=== PATIENT | female | born 1960 | race Caucasian/White ===

== ENCOUNTER 2016-07-25 20:10 | Emergency (ER) | payer SELFPAY | END 2016-07-25 21:45 | disposition left against medical advice (07) | LOC: E/R 20:10 | DX: Z53.21 Procedure and treatment not carried out due to patient leaving prior to being seen by health care provider (principal) ==

== ENCOUNTER 2016-07-27 17:04 | Observation (INO) | payer BC ==
[~2016-07-27] VITALS: Ht 157.5 cm; Wt 91.4 kg
[2016-07-27] MEDS ORDERED: morphine 4 MG/ML VIAL IV STA (22:50)
[2016-07-27] MEDS ORDERED: SOD CHLORIDE 0.9% 1,000 ML IV STA (22:50)
[2016-07-27] MEDS ORDERED: ONDANSETRON 4 MG INJ IV STA (22:50)
[2016-07-27 23:47] LABS: BASOPHILS % 0.1 % (0.0-2.0); CONDITION 1; EOSINOPHILS # 0.1 10^3/ul (0.0-0.5); EOSINOPHILS % 2.1 % (0.0-7.0); HEMATOCRIT 39.5 % (37.0-47.0); HEMOGLOBIN 13.5 g/dl (12.0-16.0); LH ANALYZER COMMENTS 1; LYMPHOCYTES # 1.3 10^3/ul (0.8-2.9); LYMPHOCYTES % 30.2 % (15.0-51.0); MEAN CORPUSCULAR HEMOGLOBIN 32.1 pg (29.0-33.0); MEAN CORPUSCULAR HGB CONC 34.1 g/dl (32.0-37.0); MEAN CORPUSCULAR VOLUME 94.2 fl (82.0-101.0); MEAN PLATELET VOLUME 8.4 fl (7.4-10.4); MONOCYTE # 0.5 10^3/ul (0.3-0.9); MONOCYTES % 11.5 % (0.0-11.0); NEUTROPHIL # 2.3 10^3/ul (1.6-7.5); NEUTROPHILS % 56.1 % (39.0-77.0); PLATELET COUNT 68 10^3/UL (140-440); RED BLOOD COUNT 4.19 10^6/ul (4.20-5.40); RED CELL DISTRIBUTION WIDTH 16.3 % (11.5-14.5); UNCORRECTED WBC 4.2 10^3/ul (4.8-10.8); WHITE BLOOD COUNT 4.2 10^3/ul (4.8-10.8)
[2016-07-27 23:53] LABS: ALBUMIN 3.1 g/dl (3.3-4.9)
[2016-07-27 23:54] LABS: POTASSIUM 3.4 mmol/L (3.5-5.1)
[2016-07-27 23:56] LABS: ALBUMIN/GLOBULIN RATIO 0.65; BILIRUBIN,INDIRECT 2.6 mg/dl (0-1.1); BILIRUBIN,TOTAL 2.6 mg/dl (0.2-1.3); CREATININE 0.64 mg/dl (0.44-1.00); TOTAL PROTEIN 7.8 g/dl (6.1-8.1)
[2016-07-27 23:57] LABS: CALCIUM 8.3 mg/dl (8.4-10.2)
[2016-07-28 00:17] LABS: ADD UMIC YES; URINE BILIRUBIN (Dip) 1+ (NEGATIVE); URINE BLOOD (Dip) 3+ (NEGATIVE); URINE COLOR RED (YELLOW); URINE GLUCOSE (Dip) NEGATIVE (NEGATIVE); URINE KETONES (Dip) NEGATIVE (NEGATIVE); URINE LEUKOCYTE ESTERASE (Dip) 3+ (NEGATIVE); URINE NITRITE (Dip) POSITIVE (NEGATIVE); URINE TOTAL PROTEIN (Dip) NEGATIVE (NEGATIVE); URINE UROBILINOGEN (Dip) >8.0 E.U./dL (0.1-1.0)
--- NOTE | 2016-07-28 00:30 | RADRPT ---
PROCEDURE: CT abdomen and pelvis without contrast. CLINICAL INDICATION: Abdominal pain TECHNIQUE: CT scan of the abdomen and pelvis without contrast was performed. Sagittal and coronal reformatted images were obtained from the axial source images. CTDI = 20.27 mGy; DLP = 1144.09 mGy- cm COMPARISON: None. FINDINGS: Visualized lower thorax: Minimal bibasilar subsegmental atelectasis is present. The visualized hea rt appears borderline enlarged. There is no evidence for pleural effusion. Liver, gallbladder, pancreas and spleen: Nodular contour to the liver is most consistent with cirrh osis until proven otherwise, the liver size is normal. There is no evidence for a liver mass or jose m tammie dilatation on this unenhanced exam. Findings are compatible with prior cholecystectomy. No com mon bile duct abnormality is demonstrated. The pancreas is unremarkable. Splenomegaly of approxima tely 15 cm is present consistent with portal hypertension. Adrenal glands and genitourinary system: The adrenal glands are normal bilaterally. The kidneys are normal and size, contour and attenuation with no evidence for masses, calculi or hydronephrosis. T he ureters are unremarkable. No urinary bladder abnormality is demonstrated. The uterus is not vis ualized, presumably surgically removed. Gastrointestinal system: A small sliding hiatal hernia is present, the remainder of the stomach is contracted and unremarkable. The small bowel is normal in caliber with no ileus, obstruction or wal l thickening. The appendix is not well visualized but there is no inflammatory stranding to suggest appendicitis. Diverticular disease of the distal descending and sigmoid colon is present. Mild per icolonic fat inflammation adjacent to the descending and sigmoid colon is most concerning for acute diverticulitis. There is no evidence of extraluminal gas to suggest perforation or abscess. Peritoneum, retroperitoneum, lymph nodes and vessels: The abdominal aorta is normal in caliber. The re is mild aortic and iliac atherosclerotic calcification. The inferior vena cava is unremarkable. In the small bowel mesentery in the region of the right lower quadrant there is an ovoid soft tissue mass isointense to adjacent musculature the abnormality estimated at 7 x 5.2 x 5.8 cm and unable to exclude mesenteric adenopathy. There is shoddy retroperitoneal lymph node prominence in the short axis of approximately 8 mm. Sub centimeter short-axis iliac chain and inguinal lymph nodes are also present. Note is made of prominent perirectal vessels likely hemorrhoids with some anterior perito mary jane varices and varices in the splenic hilum, perigastric and paraesophageal regions. There is no a scites. No pneumoperitoneum is present Osseous structures and musculoskeletal findings: There is no fracture, lytic or blastic lesion. Deg enerative spondylosis of the visualized thoracic spine is moderate. Vacuum disk phenomenon with deg enerative disk disease at L4-5 and L5-S1 is noted. No muscular abnormality or soft tissue pathology is present. RPTAT:HJJR IMPRESSION: 1. Distal colonic diverticulosis with mild pericolonic inflammatory stranding raising concern for di verticulitis without evidence of perforation or abscess. Correlation with left lower quadrant tende rness is recommended. 2. Concern for a soft tissue mass in the right lower quadrant probably mesenteric adenopathy. Carc inoid tumor is a differential diagnostic possibility. Consider follow-up evaluation with intravenou s and oral contrast media. 3. Cirrhosis of the liver with portal hypertension, splenomegaly and multiple abdominal, including perigastric and paraesophageal varices. 4. No evidence of ascites. 5. Previous hysterectomy and cholecystectomy. 6. Aortic atherosclerosis is present. Physician Daisy Date Time Electronically viewed and signed by Physician Daisy on 07/28/2016 00:29 /
[2016-07-28 00:52] LABS: BACTERIA,URINE MANY; ICTOTEST POSITIVE (NEGATIVE); SQUAMOUS EPITHELIAL CELL,UR FEW
[2016-07-28] MEDS ORDERED: metroNIDAZOLE 500 MG/NS (PMX) 100 ML IVPB ONE ×2 (01:00→12:00)
[2016-07-28] MEDS ORDERED: PIPER-TAZO 3.375 GM IV (PMX) 100 ML IVPB ONE ×2 (01:00→10:00)
--- NOTE | 2016-07-28 02:44 | ERA ---
ER Documentation Chief Complaint Date/Time DATE: 07/28/16 TIME: 02:43 Chief Complaint RLQ ABDOMINAL PAIN X 3 DAYS WITH NAUSEA AND DIARRHEA HPI This is a 55 year female has bilateral quadrant pain for 3 days with nausea and diarrhea. She's had alternating fevers and chills. Pain is mild to moderate intensity. No blood in his stool. No other current complaints. ROS All systems reviewed and are negative except as per history of present illness. Allergies Allergies: Coded Allergies: No Known Allergy (Unverified , 07/28/16) PMhx/Soc Anesthesia Reaction: No Hx Neurological Disorder: No Hx Respiratory Disorders: No Hx Cardiac Disorders: Yes (HTN) Hx Psychiatric Problems: No Hx Miscellaneous Medical Probl: Yes (thyroid problem, DM, lupus, RA) Hx Alcohol Use: No Hx Substance Use: No Hx Tobacco Use: No Smoking Status: Never smoker Physical Exam Vitals Vital Signs Date Time Temp Pulse Resp B/P Pulse Ox O2 Delivery O2 Flow Rate FiO2 07/28/16 00:31 83 16 133/87 97 Room Air 07/27/16 17:09 98.7 99 18 132/65 99 Physical Exam Const: [] Head: Atraumatic Eyes: Normal Conjunctiva ENT: Normal External Ears, Nose and Mouth. Neck: Full range of motion..~ No meningismus. Resp: Clear to auscultation bilaterally Cardio: Regular rate and rhythm, no murmurs Abd: Soft, non tender, non distended. Normal bowel sounds Skin: No petechiae or rashes Back: No midline or flank tenderness Ext: No cyanosis, or edema Neur: Awake and alert Psych: Normal Mood and Affect Result Diagram: 07/27/16 2300 07/27/16 2300 Results 24 hrs Laboratory Tests Test 07/27/16 23:00 Alanine Aminotransferase (ALT/SGPT) 36IU/L Albumin 3.1g/dl Albumin/Globulin Ratio 0.65 Alkaline Phosphatase 185IU/L Anion Gap 14 Aspartate Amino Transf (AST/SGOT) 60IU/L Basophils # 0.010^3/ul Basophils % 0.1% Blood Morphology Comment Blood Urea Nitrogen 7mg/dl Calcium Level 8.3mg/dl Carbon Dioxide Level 25mmol/L Chloride Level 106mmol/L Creatinine 0.64mg/dl Direct Bilirubin 0.00mg/dl Eosinophils # 0.110^3/ul Eosinophils % 2.1% Globulin 4.70g/dl Glucose Level 176mg/dl Hematocrit 39.5% Hemoglobin 13.5g/dl Indirect Bilirubin 2.6mg/dl Lipase 117U/L Lymphocytes # 1.310^3/ul Lymphocytes % 30.2% Mean Corpuscular Hemoglobin 32.1pg Mean Corpuscular Hemoglobin Concent 34.1g/dl Mean Corpuscular Volume 94.2fl Mean Platelet Volume 8.4fl Monocytes # 0.510^3/ul Monocytes % 11.5% Neutrophils # 2.310^3/ul Neutrophils % 56.1% Nucleated Red Blood Cells # 0.010^3/ul Nucleated Red Blood Cells % 0.0/100WBC Platelet Count 6810^3/UL Potassium Level 3.4mmol/L Red Blood Count 4.1910^6/ul Red Cell Distribution Width 16.3% Sodium Level 142mmol/L Total Bilirubin 2.6mg/dl Total Protein 7.8g/dl Urine Bacteria MANY Urine Bilirubin 1+ Urine Clarity SLIGHTLY CLOUDY Urine Color RED Urine Glucose NEGATIVE% Urine Hemoglobin 3+ Urine Ictotest POSITIVE Urine Ketones NEGATIVE Urine Leukocyte Esterase 3+ Urine Microscopic RBC 10-25/HPF Urine Microscopic WBC >200/HPF Urine Nitrite POSITIVE Urine Specific [place] 1.015 Urine Squamous Epithelial Cells FEW Urine Total Protein NEGATIVE Urine Urobilinogen >8.0 E.U./dL Urine pH 6.5 White Blood Count 4.210^3/ul Current Medications Medications (Trade) Dose Ordered Sig/Rosalio Route PRN Reason Start Time Stop Time Status Last Admin Dose Admin Sodium Chloride (NS) 1,000 ml @ 1,000 mls/hr Q1H STAT IV 07/27/16 22:50 07/27/16 23:49 DC 07/27/16 23:04 Morphine Sulfate (morphine) 4 mg ONCE STAT IV 07/27/16 22:50 07/27/16 22:52 DC 07/27/16 23:04 Ondansetron HCl 4 mg 4 mg ONCE STAT IV 07/27/16 22:50 07/27/16 22:52 DC 07/27/16 23:04 Piperacillin Sod/ Tazobactam Sod 100 ml @ 200 mls/hr ONCE ONCE IVPB 07/28/16 01:00 07/28/16 01:29 DC 07/28/16 01:20 Metronidazole (Flagyl 500 Mg (Pmx)) 100 ml @ 100 mls/hr ONCE ONCE IVPB 07/28/16 01:00 07/28/16 01:59 DC 07/28/16 02:40 Procedures/MDM Medical decision-making: This very pleasant female as well as be acute diverticulitis. Given her continued pain despite pain management therapy. At this point patient will be admitted. Dr. Concepcion has currently accepted the patient to service Departure Diagnosis: Primary Impression: Abdominal pain Qualified Code: R10.30 - Lower abdominal pain Additional Impression: Diverticulitis Qualified Code: K57.92 - Diverticulitis of intestine without perforation or abscess without bleeding, unspecified part of intestinal tract Condition: Serious JAMAL CHAKRABORTY Jul 28, 2016 02:44
[2016-07-28] MEDS ORDERED: ACETAMINOPHEN 325 MG TAB PO PRN (03:00)
[2016-07-28] MEDS ORDERED: NACL 0.9% 3 ML SYG IV SCH (03:00)
[2016-07-28] MEDS ORDERED: HYDROCODONE/APAP (5/325) TAB PO PRN ×2 (03:00)
[2016-07-28] MEDS ORDERED: ONDANSETRON 4 MG INJ IV PRN (03:00)
[2016-07-28] MEDS ORDERED: ZOLPIDEM 5 MG TAB PO PRN (03:00)
[2016-07-28 04:45] VITALS: BP 124/66; PULSE 81; RESP 16
[2016-07-28] MEDS: D5W-0.45 NACL + KCL 20 MEQ 1,000 ML IV SCH ×3 (04:54→20:16)
[2016-07-28] MEDS: FAMOTIDINE 20 MG TAB PO SCH ×3 (04:56→20:16)
[2016-07-28 05:08] VITALS: Ht 157.5 cm; Wt 91.4 kg
[2016-07-28 09:01] VITALS: BP 118/62; RESP 18
[2016-07-28] MEDS: ENOXAPARIN 40 MG/0.4 ML SYG SC SCH (09:10)
[2016-07-28] MEDS: INSULIN ASPART [NOVOLOG] 3 ML PEN SC SCH ×3 (11:40→20:33)
[2016-07-28 11:51] LABS: BASOPHILS % 0.6 % (0.0-2.0); EOSINOPHILS # 0.1 10^3/ul (0.0-0.5); EOSINOPHILS % 2.2 % (0.0-7.0); HEMOGLOBIN 12.9 g/dl (12.0-16.0); LYMPHOCYTES # 1.1 10^3/ul (0.8-2.9); LYMPHOCYTES % 29.1 % (15.0-51.0); MEAN CORPUSCULAR HEMOGLOBIN 32.1 pg (29.0-33.0); MEAN CORPUSCULAR HGB CONC 33.9 g/dl (32.0-37.0); MEAN CORPUSCULAR VOLUME 94.8 fl (82.0-101.0); MEAN PLATELET VOLUME 7.7 fl (7.4-10.4); MONOCYTE # 0.5 10^3/ul (0.3-0.9); MONOCYTES % 13.1 % (0.0-11.0); NEUTROPHIL # 2.1 10^3/ul (1.6-7.5); PLATELET COUNT 67 10^3/UL (140-440); RED CELL DISTRIBUTION WIDTH 16.3 % (11.5-14.5); UNCORRECTED WBC 3.8 10^3/ul (4.8-10.8); WHITE BLOOD COUNT 3.8 10^3/ul (4.8-10.8)
[2016-07-28 11:57] LABS: ALBUMIN 2.5 g/dl (3.3-4.9)
[2016-07-28 11:58] LABS: POTASSIUM 3.6 mmol/L (3.5-5.1)
[2016-07-28 11:59] LABS: CREATININE 0.65 mg/dl (0.44-1.00)
[2016-07-28 12:00] LABS: ALBUMIN/GLOBULIN RATIO 0.62; BILIRUBIN,INDIRECT 3.5 mg/dl (0-1.1); BILIRUBIN,TOTAL 3.5 mg/dl (0.2-1.3); CALCIUM 7.4 mg/dl (8.4-10.2); MAGNESIUM 1.7 mg/dl (1.7-2.5); TOTAL PROTEIN 6.5 g/dl (6.1-8.1)
[2016-07-28] MEDS ORDERED: GLUCOSE GEL 15 GRAM TUBE PO PRN ×2 (12:00)
[2016-07-28] MEDS ORDERED: GLUCOSE GEL 15 GRAM TUBE BUCCAL PRN (12:00)
[2016-07-28] MEDS ORDERED: DEXTROSE 50% 50 ML SYRINGE IV PRN ×2 (12:00)
[2016-07-28] MEDS ORDERED: GLUCAGON 1 MG INJ IM PRN (12:00)
[2016-07-28 12:04] LABS: CONDITION 1; LH ANALYZER COMMENTS 1
[2016-07-28] MEDS ORDERED: GABA300C16 PO (12:44)
[2016-07-28] MEDS ORDERED: FLUO20CA22 PO (12:44)
[2016-07-28] MEDS ORDERED: SYN112 PO (12:44)
[2016-07-28] MEDS ORDERED: IOHEXOL 300MG/ML 30 ML BTL ONE (12:51)
[2016-07-28] MEDS: LEVOFLOXACIN 500MG/D5W (PMX) 100 ML IVPB SCH (13:01)
[2016-07-28] MEDS: metroNIDAZOLE 500 MG/NS (PMX) 100 ML IVPB SCH ×2 (13:01→20:17)
[2016-07-28] MEDS: FLUOXETINE 20 MG CAP PO SCH (13:04)
[2016-07-28] MEDS: GABAPENTIN 300 MG CAP PO SCH ×2 (13:04→20:16)
--- NOTE | 2016-07-28 13:16 | HP ---
DATE OF ADMISSION: 07/28/2016 CHIEF COMPLAINT ON ADMISSION: Abdominal pain and nausea. PRIMARY CARE PHYSICIAN: Dr. Beasley PRIMARY BEDSPREAD INSPECTOR: Dr. Alanis HISTORY OF PRESENT ILLNESS: This is a 55-year-old female with history of hypothyroidism, systemic l upus erythematosus, diabetes mellitus, anxiety disorder, fatty liver, who presented to the emergency department with complaint of right lower quadrant suprapubic tenderness mainly. She reports episod es of nausea. This has been going on for 3 days now. She has been tolerating p.o. She denies any vomiting. She reports chills and low grade temperature. She says it is less than 100. On her labo ratory data, the patient was found to have thrombocytopenia with platelets of 65 and also leukopenia with a white count of 4.2. She does have hyperbilirubinemia with a bilirubin of 2.6. On the CAT s can of the abdomen and pelvis, she was found to have possible mild diverticulitis in the distal colo n, soft tissue mass right lower quadrant that could be adenopathy versus concern for carcinoid tumor as a differential diagnosis, and also cirrhosis of the liver with portal hypertension, splenomegaly , perigastric paraesophageal varices that can be seen. No ascites. The patient herself denies any previous history of cirrhosis, but does report fatty liver. She has been admitted to a medical/[facility] bed for diverticulitis, but also urinary tract infection based on her urinalysis and urine cult ure of gram-negative rods. ALLERGIES: NO KNOWN ALLERGIES. PAST MEDICAL HISTORY: 1. Systemic lupus erythematosus. 2. Hypothyroidism. 3. Diabetes mellitus. 4. Liver cirrhosis likely secondary to fatty liver. 5. Anxiety disorder. 6. Obesity. PAST SURGICAL HISTORY: 1. Status post section. 2. Status post cholecystectomy. OUTPATIENT MEDICATIONS: The patient does not have her list currently and could not give us the name of the medications. REVIEW OF SYSTEMS: As per HPI. The patient denies any diarrhea at this time. No cardiopulmonary c omplaints. No neurological complaints. SOCIAL HISTORY: The patient lives with her son. She also has a who is not currently living with them. She denies any alcohol or tobacco use. PHYSICAL EXAMINATION: VITAL SIGNS: Temperature 98.2, heart rate of 90, sinus rhythm, respiratory rate 18, blood pressure 118/62, the patient is saturating 95% to 97% on room air. GENERAL: She is alert and oriented x4. She is in no acute distress currently. She reports that th e pain is minimal at this point which is much improved. HEENT: Pupils are equally round and reactive to light. Extraocular muscles are intact. Anicteric sclerae. NECK: No JVD, no thyromegaly noted. HEART: Regular rate and rhythm. No murmur, rubs, or gallops. LUNGS: Clear to auscultation bilaterally. ABDOMEN: Soft, nondistended. She has very mild discomfort with pain to deep palpation in the right lower quadrant to mid lower abdomen area. EXTREMITIES: No edema, clubbing, or cyanosis. NEUROLOGIC: Grossly intact. LABORATORY DATA: White blood cell count on admission 4.2, hemoglobin 13.5, hematocrit 39.5, platele t count of 68. Chemistry with a sodium of 142, potassium 3.4, chloride 106, bicarbonate 25, BUN 7, creatinine 0.67, glucose 176, calcium 8.3, total bilirubin 2.6, AST 60, ALT 36, alkaline phosphatase 185, total protein 7.8, albumin 3.1, lipase 170. Urinalysis is positive for nitrites, positive for leukocyte esterase, many bacteria were seen, all consistent with UTI. MICROBIOLOGY: Urine culture positive with gram negative rods greater than 100,000 CFU. RADIOLOGICAL IMAGING: CAT scan of the abdomen and pelvis without contrast showing distal colonic di verticulosis with mild pericolic inflammatory stranding, raising concern for diverticulitis without evidence of perforation or abscess, correlation with left lower quadrant tenderness is recommended. Of note, the patient is not having left lower quadrant tenderness. Concern for a soft tissue mass in the right lower quadrant, probably mesenteric and adenopathic carcinoid tumor is the differential diagnosis, possibly consider followup evaluation with IV and oral contrast media which will be done as the patient's primary pain is right lower quadrant actually. Also is noted cirrhosis of the tramaine er with portal hypertension, splenomegaly and multiple abdominal including perigastric and periesoph ageal varices. No evidence of ascites, previous hysterectomy and cholecystectomy, aortic atheroscle rosis. ASSESSMENT AND PLAN: 1. This is a 55-year-old female with lower abdominal pain, primarily right lower quadrant. Given t he findings on the CAT scan, noncontrasted CT with oral and p.o. contrast will be done today in orde r to reevaluate that right lower quadrant possible mass. She is going to be placed on Levaquin and Flagyl for empiric treatment for diverticulitis and also the Levaquin should cover the urinary tract infection until we get final cultures from the urine. The patient is currently stable. She will b e started on a clear liquid diet after the CAT scan is done today. She is currently on IV fluids. 2. Urinary tract infection with gram negative rods. Continue Levaquin for now. Will adjust antibi otics as needed. 3. Cirrhosis of the liver with signs of portal hypertension. At this point, the patient has been i nformed. She will have to be careful and follow up with hepatology as an outpatient. I will check her hepatitis panel at this time at least. She has known lupus. 4. Systemic lupus erythematosus. Will resume her home medication once we get the list. She is justino rly stable currently. 5. Hypothyroidism. Resume medications. 6. Diabetes mellitus. Will check a hemoglobin A1c, place her on a sliding scale insulin, and resum e her medications once they are available. 7. Hypokalemia. We will repeat her laboratory data today. She has been on D5 half-NS with KCl ove rnight. We will adjust her IV fluids depending on her potassium level and blood sugars. 8. Prophylaxis: Pepcid for gastrointestinal prophylaxis. SCDs to lower extremity for DVT prophyla xis. DISPOSITION: The patient has been admitted to a medical/surgical bed and on IV antibiotics along wi th IV fluids currently. She is awaiting a repeat CAT scan of the abdomen and pelvis and will start her diet afterwards, and depending on the results of the CAT scan, further care will be planned. Dictated By: CHRISSY SCOTT/NTS Conf#: [id number] DID#: [id number]
[2016-07-28] MEDS ORDERED: POTASSIUM CHLORIDE (SR) 20 MEQ TAB PO STA (13:35)
[2016-07-28] MEDS ORDERED: MAGNESIUM SULFATE 2 GM/50 ML 50 ML IVPB ONE (15:00)
--- NOTE | 2016-07-28 17:26 | RADRPT ---
PROCEDURE: CT of the abdomen and pelvis CLINICAL INDICATION: Abdominal pain TECHNIQUE: The study was performed utilizing a GE Gran[employer]peed 64-slice multidetector CT scanner. Dir ect spiral axial sections were obtained through the abdomen and pelvis with intravenous contrast. Af ter administration of 100cc of Isovue -300, postcontrast images were obtained. Oral contrast is prov ided. Coronal and sagittal reformatted images were performed. The CTDI vol is 18.31 mGy and the DLP is 1022.94 mGy-cm. The images were reviewed on a PACS workstation. COMPARISON: 07/28/2016 from 12:07 a[address]. FINDINGS: CT abdomen: The lung bases are clear. The heart is not enlarged. No pleural or pericardial effusi on is seen. Cirrhotic liver morphology is seen once again. Collateral vessels are seen in the perisplenic region , perigastric region, and a prior esophageal region. A recanalized periumbilical vein is seen. No f ocal liver lesions or intrahepatic biliary dilatation is seen. The gallbladder has been removed. The spleen is again noted to be enlarged measuring approximately 15.5 cm in the AP axis. The pancreas, and adrenal glands are unremarkable in appearance. The kidneys are normal size and contour enhance n ormally. No evidence of hydronephrosis or nephrolithiasis is seen. The stomach is unremarkable. Sigmoid diverticulosis is once again seen. Wall thickening of the sig moid colon and rectum is noted. The small and remainder of the large bowel are otherwise unremarkab le in course and caliber. No inflammatory changes in the periappendiceal region is seen. No enlarge d lymph nodes or fluid collections are seen. The aorta is normal in caliber with atherosclerotic carlos cifications. Large collateral vessels are seen in the right lower quadrant and pelvis. CT pelvis: No pelvic mass, adenopathy, or focal fluid collection is seen. There is a trace amount of free fluid. The urinary bladder is normal. The uterus is absent. A small fluid attenuation stru cture in the left vaginal wall is seen which may represent a Bartholin cyst measuring 2 cm in manuel l diameter. No osseous lesions are seen. Degenerative changes in the lumbar spine are seen. IMPRESSION: 1. Large collateral vessels in the right lower quadrant and pelvis in the region of the area of con cern on the prior CT scan. 2. Cirrhosis with evidence of portal hypertension again seen characterized by splenomegaly and diego ateral vessels as described above. 3. Sigmoid diverticulosis with mild wall thickening in the rectosigmoid region which may represent colitis. Continued follow-up is recommended. 4. Trace amount of free fluid. RPTAT: HPNM Physician Taylor Date Time Electronically viewed and signed by Gordon Bajwa Physician on 07/28/2016 17:26 /
[2016-07-28] MEDS ORDERED: SOD CHLORIDE 0.9% 100 ML ONE (17:46)
[2016-07-28] MEDS ORDERED: IOHEXOL 300MG/ML 150 ML BTL ONE (17:46)
[2016-07-28 20:18] VITALS: BP 135/70; RESP 18
[2016-07-28] MEDS: METHOCARBAMOL 500 MG TAB PO SCH (21:58)
[2016-07-29] MEDS: metroNIDAZOLE 500 MG/NS (PMX) 100 ML IVPB SCH ×2 (05:10→14:00)
[2016-07-29] MEDS ORDERED: LEVOTHYROXINE 112 MCG TAB PO SCH (06:00)
[2016-07-29 06:01] LABS: POTASSIUM 3.7 mmol/L (3.5-5.1)
[2016-07-29 06:03] LABS: CREATININE 0.59 mg/dl (0.44-1.00)
[2016-07-29 06:04] LABS: CALCIUM 7.6 mg/dl (8.4-10.2); MAGNESIUM 1.9 mg/dl (1.7-2.5); PHOSPHORUS 3.2 mg/dl (2.5-4.9)
[2016-07-29 06:08] LABS: T3 UPTAKE 38.9 % (23.5-40.5)
[2016-07-29] MEDS: INSULIN ASPART [NOVOLOG] 3 ML PEN SC SCH ×3 (07:50→17:55)
[2016-07-29 08:01] VITALS: BP 130/66; RESP 19
[2016-07-29] MEDS: FAMOTIDINE 20 MG TAB PO SCH (09:00)
[2016-07-29] MEDS ORDERED: MELOXICAM 15 MG TAB PO SCH (09:00)
[2016-07-29] MEDS: METHOCARBAMOL 500 MG TAB PO SCH ×2 (09:00→13:49)
[2016-07-29] MEDS: GABAPENTIN 300 MG CAP PO SCH ×2 (09:00→13:49)
--- NOTE | 2016-07-29 13:35 | PN ---
Date/Time of Note Date/Time of Note DATE: 07/29/16 TIME: 13:31 Assessment/Plan VTE Prophylaxis VTE Prophylaxis Intervention: other (ydt) Lines/Catheters IV Catheter Type (from Nrsg): Peripheral IV Urinary Cath still in place: No Assessment/Plan Assessment/Plan 1. GI: persumed diverticulitis, cont abx, advance diet slowly as pain subsides (b) new diagnosis cirrhosis, possibly related to autoimmune disease vs PADILLA? outpatient gi referral (c) RLQ mass on contrast study shows dilated vascular structures 2.heme: splenomegaly with leukopenia and thrombocytopenia; observe 3. SLE 4. ok d/c home Subjective 24 Hr Interval Summary Free Text/Dictation no complaints pain improved tolerating diet and ambulation Exam/Review of Systems Vital Signs Vitals Vital Signs Date Time Temp Pulse Resp B/P Pulse Ox O2 Delivery O2 Flow Rate FiO2 07/29/16 08:01 98.0 80 19 130/66 98 07/28/16 04:45 Room Air Intake and Output 07/28/16 07/28/16 07/29/16 15:00 23:00 07:00 Intake Total 380 ml 1720 ml Balance 380 ml 1720 ml Exam Constitutional: alert Respiratory: clear to auscultation Cardiovascular: regular rate and rhythm Gastrointestinal: non-tender, soft Results Result Diagram: 07/28/16 1135 07/29/16 0419 Results 24 hrs Laboratory Tests Test 07/28/16 17:40 07/28/16 20:18 07/29/16 04:19 07/29/16 08:34 Bedside Glucose 92 106 106 Anion Gap 12 Blood Urea Nitrogen 5 L Calcium Level 7.6 L Carbon Dioxide Level 24 Chloride Level 107 Creatinine 0.59 Free Thyroxine Index 2.96 Glucose Level 101 Magnesium Level 1.9 Phosphorus Level 3.2 Potassium Level 3.7 Sodium Level 139 Thyroxine (T4) 7.6 Triiodothyronine (T3) Uptake 38.9 Test 07/29/16 12:11 Bedside Glucose 109 Medications Medications Current Medications Ondansetron HCl (Zofran Inj) 4 mg Q6H PRN IV NAUSEA AND/OR VOMITING; Start 07/28 at 03:00 Acetaminophen (Tylenol Tab) 650 mg Q6H PRN PO PAIN LEVEL 1-3 OR FEVER; Start at 03:00 Acetaminophen/ Hydrocodone Bitart ([place] (5/325)) 1 tab Q6H PRN PO MODERATE PAIN LEVEL 4-6; Start 07/28/16 at 03:00 Acetaminophen/ Hydrocodone Bitart ([place] (5/325)) 2 tab Q6H PRN PO SEVERE PAIN LEVEL 7-10; Start 07/28/16 at 03:00 Zolpidem Tartrate (Ambien) 5 mg QHS PRN PO SLEEP; Start 07/28/16 at 03:00 Famotidine (Pepcid) 20 mg Q12 PO Last administered on 07/28/16 20:16; Admin Dose 20 MG; Start 07/28/16 at 03:00 Enoxaparin Sodium 40 mg 40 mg DAILY SC Last administered on 07/28/16 09:10; Admin Dose 40 MG; Start 07/28/16 at 09:00 Potassium Chloride/Dextrose/ Sod Cl 1,000 ml @ 75 mls/hr [id number] IV Last administered on 07/28/16 20:16; Admin Dose 75 MLS/HR; Start 07/28/16 at 03:00 Metronidazole 100 ml @ 100 mls/hr Q8 IVPB Last administered on 07/29/16 05:10 ; Admin Dose 100 MLS/HR; Start 07/28/16 at 14:00 Levofloxacin/ Dextrose (Levaquin 500mg/ D5W 100 ml (Pmx)) 100 ml @ 100 mls/hr Q24H IVPB Last administered on 07/28/16 13:01; Admin Dose 100 MLS/HR; Start 07/28/16 at 12:00 Miscellaneous Information 1 ea NOTE XX ; Start 07/28/16 at 12:00 Glucose (Glutose) 15 gm Q15M PRN PO DECREASED GLUCOSE; Start 07/28/16 at 12:00 Glucose (Glutose) 22.5 gm Q15M PRN PO DECREASED GLUCOSE; Start 07/28/16 at 12:00 Dextrose (D50w Syringe) 25 ml Q15M PRN IV DECREASED GLUCOSE; Start 07/28/16 at 12:00 Dextrose (D50w Syringe) 50 ml Q15M PRN IV DECREASED GLUCOSE; Start 07/28/16 at 12:00 Glucagon (Glucagen) 1 mg Q15M PRN IM DECREASED GLUCOSE; Start 07/28/16 at 12:00 Glucose (Glutose) 15 gm Q15M PRN BUCCAL DECREASED GLUCOSE; Start 07/28/16 at 12: 00 Gabapentin (Neurontin) 300 mg TID PO Last administered on 07/28/16 20:16; Admin Dose 300 MG; Start 07/28/16 at 13:00 Fluoxetine HCl (Prozac) 20 mg DAILY PO Last administered on 07/28/16 13:04; Admin Dose 20 MG; Start 07/28/16 at 13:00 Levothyroxine Sodium (Synthroid) 112 mcg DAILY@06 PO Last administered on 05:10; Admin Dose 112 MCG; Start 07/29/16 at 06:00 Methocarbamol (Robaxin) 500 mg TID PO Last administered on 07/28/16 21:58; Admin Dose 500 MG; Start 07/28/16 at 21:00 Meloxicam (Mobic) 15 mg DAILY PO ; Start 07/29/16 at 09:00 DARIA DE PAZ MD Jul 29, 2016 13:35
--- NOTE | 2016-07-29 13:40 | PDOCDIS ---
Discharge Instructions CONDITION Patient Condition: Good HOME CARE INSTRUCTIONS: Diet Instructions: clear liquids, advance to regular slowly as pain subsides Special Diet: NPO except Meds ACTIVITY: Activity Restrictions: Slowly Increase Activity FOLLOW UP/APPOINTMENTS Appointments 1. follow up with primary care in 1 week 2. follow up with GI (liver specialist) next available DARIA DE PAZ MD Jul 29, 2016 13:40
[2016-07-29] MEDS ORDERED: LEVO500T10 PO (13:45)
[2016-07-29] MEDS ORDERED: METR500T PO (13:45)
[2016-07-29] MEDS: LEVOFLOXACIN 500MG/D5W (PMX) 100 ML IVPB SCH (13:49)
[2016-07-29] MEDS: ENOXAPARIN 40 MG/0.4 ML SYG SC SCH (13:53)
[2016-07-29] MEDS: FLUOXETINE 20 MG CAP PO SCH (14:00)
--- NOTE | 2016-07-29 14:51 | DS ---
DATE OF ADMISSION: 07/28/2016 DATE OF DISCHARGE: 07/29/2016 DISCHARGE DIAGNOSES 1. Diverticulitis, mild and improving. 2. Right lower quadrant soft tissue mass, most likely related to vascular distension of cirrhosis. 3. New diagnosis cirrhosis. 4. Systemic lupus erythematosus. 5. Leukopenia and thrombocytopenia, likely related to splenomegaly versus lupus versus both. HOSPITAL COURSE: Ms. Christianson presents to the emergency room at [facility] with abdominal pain. CT scan at that time reveals signs consistent with sigmoid diverticulitis as w ell as an undisclosed right lower quadrant mass. Repeat CT scan with contrast was performed and show s this mass to be vascular engorgement related to new diagnosis of cirrhosis. The patient is treated for diverticulitis with IV antibiotics and clear liquid diet. She improves ov ernight. Her pain is much improved. She is eating clears and ambulating well at this time and is harsha med stable for transition to home on oral antibiotics DISCHARGE MEDICATIONS: 1. The patient is asked to take the following new medicines. 2. Flagyl 500 mg p.o. every 8 hours for 7 days. 3. Levaquin 500 mg p.o. daily for 7 days. The patient was asked to continue the following medicines without changes: 4. Neurontin 300 mg t.i.d. 5. Levothyroxine 0.112 mg daily. 6. Paxil 20 mg daily. DISCHARGE DISPOSITION: To home. DISCHARGE ACTIVITY: Increase in physical activity as tolerated. DISCHARGE DIET: Clear liquid and advance to regular as pain subsides. DISCHARGE FOLLOWUP: With primary care physician in 1 week and with GI next available appointment. SUGGESTIONS FOR FOLLOWUP CARE: Continue to establish cause of cirrhosis, at this point most likely c auses are either nonalcoholic steatohepatitis versus systemic lupus erythematosus and auto immune di sease versus undisclosed alcohol use. Dictated By: DARIA DE PAZ MD RER/NTS Conf#: [id number] DID#: [id number]
[2016-07-29] MEDS: D5W-0.45 NACL + KCL 20 MEQ 1,000 ML IV SCH (19:00)
== END 2016-07-29 20:20 | disposition home or self-care (01) ==
LOC: E/R 17:04 → MS1 07-28 02:31
PROVIDERS: ADMIT Internal Medicine; ATTEND Internal Medicine
DX: K57.32 Diverticulitis of large intestine without perforation or abscess without bleeding (principal); M79.9 Soft tissue disorder, unspecified; I10 Essential (primary) hypertension; K74.60 Unspecified cirrhosis of liver; D72.819 Decreased white blood cell count, unspecified; M32.9 Systemic lupus erythematosus, unspecified; D69.6 Thrombocytopenia, unspecified; E11.9 Type 2 diabetes mellitus without complications; M06.9 Rheumatoid arthritis, unspecified; E03.9 Hypothyroidism, unspecified; F41.9 Anxiety disorder, unspecified; E66.9 Obesity, unspecified; Z68.36 Body mass index [BMI] 36.0-36.9, adult; Z90.49 Acquired absence of other specified parts of digestive tract
CPT/HCPCS: 74176; 74177; 80048; 80053; 81001; 82962; 83036; 83690; 83735; 84100; 84436; 84479; 85025; 87086; J1650; J1956; J2270; J2405; J2543; J3475; J3480; J7030; Q9967; Z7500; Z7610; 81003; G0378; J1815